=== PATIENT | female | born 1995 | race Hispanic/Latino ===

== ENCOUNTER 2021-04-13 16:09 | Inpatient (IN) | payer OTHER ==
[~2021-04-13] VITALS: Ht 157.5 cm; Wt 79.4 kg
[2021-04-13] MEDS ORDERED: FAMOTIDINE 20MG VIAL IV ONE ×2 (16:30→17:04)
[2021-04-13] MEDS ORDERED: MAG/ALUM/SIMETH 30 ML UDCUP PO ONE (16:30)
[2021-04-13] MEDS ORDERED: ONDANSETRON 4MG INJ IVP ONE (16:30)
[2021-04-13 16:44] LABS: APPEARANCE,URINE Cloudy (CLEAR); BILIRUBIN,URINE Negative (NEGATIVE); COLOR,URINE Yellow (YELLOW); GLUCOSE, URINE (UA) Negative (NEGATIVE); KETONES,URINE Trace mg/dL (NEGATIVE); LEUKOCYTE ESTERASE ,URINE Trace (NEGATIVE); NITRATE,URINE Negative (NEGATIVE); OCCULT BLOOD,URINE Negative (NEGATIVE); PH,URINE 7.5 (5.0-8.0); PROTEIN,URINE POS 2+ mg/dL (NEGATIVE)
[2021-04-13 16:47] LABS: HCG,QUAL RESULT NEGATIVE (NEGATIVE)
[2021-04-13 16:47] LABS: BASOPHILS % (AUTO) 0.4 % (0.0-5.0); EOSINOPHILS % (AUTO) 1.3 % (0.0-8.0); HEMATOCRIT 37.1 % (36-48); LYMPHOCYTES % (AUTO) 9.6 % (21.0-51.0); MEAN CORPUSCULAR HEMOGLOBIN 25.3 pg (27.0-33.0); MEAN CORPUSCULAR HGB CONC 31.3 g/dL (32.0-36.0); MEAN CORPUSCULAR VOLUME 80.8 fL (79-99); MONOCYTES % (AUTO) 4.7 % (3.0-13.0); NEUTROPHILS % (AUTO) 83.6 % (40.0-77.0); PLATELET COUNT (AUTO) 270 K/uL (130-400); RED BLOOD CELL COUNT(AUTO) 4.59 MIL/uL (4.00-5.50); RED CELL DISTRIBUTION WIDTH 16.1 % (11.0-15.5); WHITE BLOOD COUNT (AUTO) 12.7 K/uL (4.8-10.8)
[2021-04-13 16:56] LABS: CREATININE 0.8 mg/dL (0.5-1.5); POTASSIUM 4.6 mmol/L (3.5-5.1)
[2021-04-13 17:01] LABS: ALBUMIN 3.9 g/dL (3.5-5.0); BILIRUBIN,TOTAL 0.2 mg/dL (0.2-1.0)
[2021-04-13] MEDS ORDERED: MAG/ALUM/SIMETH 30 ML UDCUP ONE (17:03)
[2021-04-13] MEDS ORDERED: LIDOCAINE HCL 2% VISCOUS 15 ML UDCUP ONE (17:03)
[2021-04-13] MEDS ORDERED: ONDANSETRON 4MG INJ ONE (17:04)
[2021-04-13] MEDS ORDERED: DICYCLOMINE HCL 10 MG/5 ML ML PO ONE (17:04)
[2021-04-13 17:16] LABS: BACTERIA,URINE Few /HPF (None Seen); RBC,URINE 0-1 /HPF (0-1)
[2021-04-13 17:17] LABS: MUCUS,URINE Few LPF (None Seen); SQUAMOUS EPITHELIAL CELL,UR Moderate /HPF (0-2)
[2021-04-13] MEDS ORDERED: CEFTRIAXONE 1G VIAL ONE (17:34)
[2021-04-13] MEDS ORDERED: CEFTRIAXONE 1G VIAL IVP ONE (18:00)
[2021-04-13] MEDS: LACTATED RINGERS 1000ML 1,000 ML IV SCH (21:29)
[2021-04-13] MEDS ORDERED: MORPHINE 2 MG SYG IV PRN (21:30)
[2021-04-13] MEDS ORDERED: MORPHINE 4 MG SYG IV PRN (21:30)
[2021-04-13 21:39] LABS: CHOLESTEROL 127 mg/dL (<200); HDL CHOLESTEROL 52 mg/dL (35-85); LDL DIRECT 63 mg/dL (0-99); TRIGLYCERIDES 41 mg/dL (30-200)
[2021-04-14] MEDS: ZOSYN 3.375GM+NS 50ML 50 ML IV SCH ×2 (05:00→17:19)
[2021-04-14 06:12] LABS: BASOPHILS % (AUTO) 0.4 % (0.0-5.0); EOSINOPHILS % (AUTO) 2.2 % (0.0-8.0); HEMATOCRIT 35.6 % (36-48); LYMPHOCYTES % (AUTO) 19.3 % (21.0-51.0); MEAN CORPUSCULAR HEMOGLOBIN 24.8 pg (27.0-33.0); MEAN CORPUSCULAR HGB CONC 31.5 g/dL (32.0-36.0); MEAN CORPUSCULAR VOLUME 78.8 fL (79-99); MONOCYTES % (AUTO) 7.3 % (3.0-13.0); NEUTROPHILS % (AUTO) 70.6 % (40.0-77.0); PLATELET COUNT (AUTO) 283 K/uL (130-400); RED BLOOD CELL COUNT(AUTO) 4.52 MIL/uL (4.00-5.50); WHITE BLOOD COUNT (AUTO) 8.3 K/uL (4.8-10.8)
[2021-04-14 06:25] LABS: CREATININE 0.8 mg/dL (0.5-1.5); MAGNESIUM 1.8 mg/dL (1.80-2.40); PHOSPHORUS 3.6 mg/dL (2.5-4.9); POTASSIUM 3.8 mmol/L (3.5-5.1)
[2021-04-14 06:32] LABS: INR 1.06 (0.85-1.15); PROTHROMBIN TIME 11.5 SEC (9.6-11.6)
[2021-04-14 06:33] LABS: PARTIAL THROMBOPLASTIN TIME 26.9 SEC (26.3-35.5)
[2021-04-14 08:00] VITALS: BP 106/59
[2021-04-14 12:00] VITALS: BP 87/47
[2021-04-14 16:00] VITALS: BP 108/60
[2021-04-14] MEDS: LACTATED RINGERS 1000ML 1,000 ML IV SCH ×2 (17:19→18:10)
[2021-04-14] MEDS: FAMOTIDINE 20MG VIAL IV SCH ×2 (17:19→20:46)
[2021-04-14] MEDS ORDERED: ONDANSETRON 4MG INJ IVP PRN (19:30)
[2021-04-14 20:00] VITALS: BP 113/68
[2021-04-15] VITALS (7 sets, daily range): BP systolic 95–122; BP diastolic 51–71
[2021-04-15] MEDS: ZOSYN 3.375GM+NS 50ML 50 ML IV SCH ×4 (01:49→22:18)
[2021-04-15] MEDS: LACTATED RINGERS 1000ML 1,000 ML IV SCH ×2 (02:52→13:30)
[2021-04-15 04:41] LABS: BASOPHILS % (AUTO) 0.5 % (0.0-5.0); EOSINOPHILS % (AUTO) 3.1 % (0.0-8.0); LYMPHOCYTES % (AUTO) 26.8 % (21.0-51.0); MEAN CORPUSCULAR HEMOGLOBIN 24.9 pg (27.0-33.0); MEAN CORPUSCULAR HGB CONC 31.1 g/dL (32.0-36.0); MEAN CORPUSCULAR VOLUME 80.2 fL (79-99); MONOCYTES % (AUTO) 6.7 % (3.0-13.0); NEUTROPHILS % (AUTO) 62.7 % (40.0-77.0); PLATELET COUNT (AUTO) 266 K/uL (130-400); RED BLOOD CELL COUNT(AUTO) 4.49 MIL/uL (4.00-5.50); RED CELL DISTRIBUTION WIDTH 15.9 % (11.0-15.5)
[2021-04-15 04:55] LABS: ALBUMIN 3.1 g/dL (3.5-5.0); BILIRUBIN,TOTAL 0.5 mg/dL (0.2-1.0); CREATININE 0.8 mg/dL (0.5-1.5); MAGNESIUM 1.9 mg/dL (1.80-2.40); TOTAL PROTEIN, SERUM 7.3 g/dL (6.0-8.3)
[2021-04-15] MEDS: FAMOTIDINE 20MG VIAL IV SCH ×2 (09:00→22:18)
[2021-04-15] MEDS ORDERED: BISACODYL 10 MG SUPP.RECT RC ONE (09:00)
[2021-04-16 03:44] VITALS: BP 93/55
[2021-04-16] MEDS: ZOSYN 3.375GM+NS 50ML 50 ML IV SCH ×2 (05:21→13:00)
[2021-04-16 05:53] LABS: BASOPHILS % (AUTO) 0.4 % (0.0-5.0); EOSINOPHILS % (AUTO) 3.1 % (0.0-8.0); HEMATOCRIT 37.7 % (36-48); LYMPHOCYTES % (AUTO) 22.1 % (21.0-51.0); MEAN CORPUSCULAR HEMOGLOBIN 25.4 pg (27.0-33.0); MEAN CORPUSCULAR HGB CONC 32.1 g/dL (32.0-36.0); MONOCYTES % (AUTO) 6.2 % (3.0-13.0); NEUTROPHILS % (AUTO) 67.9 % (40.0-77.0); PLATELET COUNT (AUTO) 279 K/uL (130-400); RED BLOOD CELL COUNT(AUTO) 4.77 MIL/uL (4.00-5.50); RED CELL DISTRIBUTION WIDTH 15.7 % (11.0-15.5); WHITE BLOOD COUNT (AUTO) 7.4 K/uL (4.8-10.8)
[2021-04-16 06:18] LABS: ALBUMIN 3.8 g/dL (3.5-5.0); BILIRUBIN,TOTAL 0.5 mg/dL (0.2-1.0); CREATININE 0.9 mg/dL (0.5-1.5); POTASSIUM 3.6 mmol/L (3.5-5.1); TOTAL PROTEIN, SERUM 8.2 g/dL (6.0-8.3)
[2021-04-16 08:11] VITALS: BP 98/56
[2021-04-16] MEDS: FAMOTIDINE 20MG VIAL IV SCH (10:13)
[2021-04-16 11:56] VITALS: BP 101/58
== END 2021-04-16 14:50 | disposition home or self-care (01) | DRG 390 ==
LOC: EDH 16:09 → EDHIP 21:05 → 3CH 04-14 08:25
PROVIDERS: ADMIT Internal Medicine; ATTEND Internal Medicine
DX: K56.41 Fecal impaction (principal); Z20.822 Contact with and (suspected) exposure to COVID-19; R74.8 Abnormal levels of other serum enzymes; K80.20 Calculus of gallbladder without cholecystitis without obstruction; Z98.84 Bariatric surgery status
CPT/HCPCS: 36415; 71045; 74018; 74176; 76700; 80048; 80053; 80061; 81001; 81025; 83690; 83735; 84100; 84145; 85025; 85610; 85730; 86850; 86900; 86901; 87040; 87088; 87635; 93005; G0378; J0696; J2405; J2543; J3490; J7120

== ENCOUNTER 2022-05-07 16:19 | Emergency (ER) | payer OTHER ==
[~2022-05-07] VITALS: Ht 157.5 cm; Wt 78.9 kg
[2022-05-07 16:57] LABS: BASOPHILS % (AUTO) 0.3 % (0.0-5.0); EOSINOPHILS % (AUTO) 1.3 % (0.0-8.0); HEMATOCRIT 35.3 % (36-48); LYMPHOCYTES % (AUTO) 10.6 % (21.0-51.0); MEAN CORPUSCULAR HEMOGLOBIN 26.8 pg (27.0-33.0); MEAN CORPUSCULAR HGB CONC 33.1 g/dL (32.0-36.0); MONOCYTES % (AUTO) 5.6 % (3.0-13.0); NEUTROPHILS % (AUTO) 81.9 % (40.0-77.0); PLATELET COUNT (AUTO) 312 K/uL (130-400); RED BLOOD CELL COUNT(AUTO) 4.36 MIL/uL (4.00-5.50); RED CELL DISTRIBUTION WIDTH 14.6 % (11.0-15.5); WHITE BLOOD COUNT (AUTO) 10.8 K/uL (4.8-10.8)
[2022-05-07 16:58] LABS: APPEARANCE,URINE CLOUDY (CLEAR); BILIRUBIN,URINE NEGATIVE (NEGATIVE); COLOR,URINE YELLOW (YELLOW); GLUCOSE, URINE (UA) NEGATIVE (NEGATIVE); KETONES,URINE NEGATIVE (NEGATIVE); LEUKOCYTE ESTERASE ,URINE NEGATIVE Leu/uL (NEGATIVE); NITRATE,URINE NEGATIVE (NEGATIVE); OCCULT BLOOD,URINE NEGATIVE (NEGATIVE); PROTEIN,URINE 20 mg/dL (NEGATIVE); UROBILINOGEN,URINE 0.2 mg/dL (0.2-1.0)
[2022-05-07 17:02] LABS: BACTERIA,URINE RARE /HPF (None Seen); MUCUS,URINE RARE LPF (None Seen); RBC,URINE 0-1 /HPF (0-1); SQUAMOUS EPITHELIAL CELL,UR FEW /HPF (0-2)
[2022-05-07 17:07] LABS: CREATININE 0.6 mg/dL (0.5-1.5); POTASSIUM 3.4 mmol/L (3.5-5.1)
[2022-05-07 17:35] LABS: TOTAL PROTEIN, SERUM 8.3 g/dL (6.0-8.3)
[2022-05-07] MEDS ORDERED: CEPH500B PO (18:39)
[2022-05-07] MEDS ORDERED: PREN-61 PO (18:39)
[2022-05-07 18:48] VITALS: BP 112/65
[2022-05-07] MEDS ORDERED: CEFTRIAXONE 1G VIAL ONE (18:54)
[2022-05-07] MEDS ORDERED: CEFTRIAXONE 1G VIAL IM ONE (19:00)
== END 2022-05-07 19:00 | disposition home or self-care (01) ==
LOC: EDH 16:19
DX: O23.42 Unspecified infection of urinary tract in pregnancy, second trimester (principal); N39.0 Urinary tract infection, site not specified; Z3A.17 17 weeks gestation of pregnancy
CPT/HCPCS: 99284; 76805; 80053; 84702; 85025; 81001; 36415; 96372; J0696